=== PATIENT | male | born 1985 | race Hispanic/Latino ===

== ENCOUNTER 2016-12-09 06:44 | Observation (INO) | payer OTHER ==
[2016-12-09 06:54] VITALS: TEMP 97.6; O2SAT 100
[2016-12-09] MEDS ORDERED: Sodium Chloride 0.9% 1,000 ML IV STA (07:35)
--- NOTE | 2016-12-09 07:54 | ED PDOC ---
HPI: Abdomen Time Seen by Provider: 12/09/16 07:00 Chief Complaint (Nursing): Abdominal Pain Chief Complaint (Provider): Abdominal Pain History Per: Patient History/Exam Limitations: no limitations Onset/Duration Of Symptoms: Hrs (x1.5 hours [employer]) Current Symptoms Are (Timing): Still Present Location Of Pain/Discomfort: Diffuse Last Bowel Movement: Today Additional Complaint(s): Sriram Gordon is a 31 year old male that presents to the ED with a chief complaint of diffuse abdominal pain that he reports began about 1.5 hours prior to arrival. Patient states that he has had a few bowel movements this morning, which have temporarily relieved his pain, but that his pain has returned after each bowel movement. He denies any fever or vomiting, but reports slight nausea , which he attributes to his extreme pain. Of Note: Patient reports that he has had his appendix removed, but he still has his gallbladder. Past Medical History Reviewed: Historical Data, Nursing Documentation, Vital Signs Vital Signs: Last Vital Signs Temp 97.6 F 12/09/16 06:52 Pulse 75 12/09/16 13:00 Resp 14 12/09/16 13:00 BP 122/79 12/09/16 13:00 Pulse Ox 100 12/09/16 13:00 - Medical History PMH: No Chronic Diseases - Surgical History Surgical History: Appendectomy - Family History Family History: States: Unknown Family Hx - Social History Current smoker - smoking cessation education provided: No Alcohol: Occasional Drugs: Denies - Allergies Allergies/Adverse Reactions: Allergies Allergy/AdvReac Type Severity Reaction Status Date / Time No Known Allergies Allergy Verified 12/09/16 06:52 Review of Systems Constitutional: Negative for: Fever Gastrointestinal: Positive for: Nausea (mild), Abdominal Pain (diffuse). Negative for: Vomiting Physical Exam - Reviewed Nursing Documentation Reviewed: Yes Vital Signs Reviewed: Yes - Physical Exam Appears: Positive for: Non-toxic, Uncomfortable Head Exam: Positive for: ATRAUMATIC, NORMOCEPHALIC Skin: Positive for: Normal Color, Warm Eye Exam: Positive for: Normal appearance Cardiovascular/Chest: Positive for: Regular Rate, Rhythm. Negative for: Murmur Respiratory: Positive for: Normal Breath Sounds. Negative for: Wheezing Gastrointestinal/Abdominal: Positive for: Tenderness (diffuse abdominal tenderness). Negative for: Normal Exam Extremity: Positive for: Normal ROM Neurologic/Psych: Positive for: Alert, Oriented - Laboratory Results Result Diagrams: 12/09/16 07:45 12/09/16 07:45 - ECG O2 Sat by Pulse Oximetry: 100 (RA) Pulse Ox Interpretation: Normal Medical Decision Making Medical Decision Making: Impression: Abdominal Pain Plan: * CT A/P with PO and IV contrast * CMP * CBC * Lipase * Pepcid 20 mg IV * Morphine 4 mg IV * Sodium Chloride 1000 mL at 150 mLs/hr * Zofran Injection 4 mg IV * Urine Culture * Urinalysis * ED Obs * Reevaluation Scribe Attestation: Documented by Iza Pompa, acting as a scribe for Aurora Soni MD. Provider Scribe Attestation: All medical record entries made by the Scribe were at my direction and personally dictated by me. I have reviewed the chart and agree that the record accurately reflects my personal performance of the history, physical exam, medical decision making, and the department course for this patient. I have also personally directed, reviewed, and agree with the discharge instructions and disposition. ED OBSERVATION Date of observation admission: 12/09/16 Time of observation admission: 07:35 - Observation admission statement Patient is being placed in observation because:: need for serial examinations to determine stability for disposition. - Goals of Observation Goals of observation are:: determine origin of pain and improvement of symptoms. - Progress Note Progress Note: 12/09/16 07:35 Patient appears uncomfortable but is stable; is awaiting CT Scan. 12/09/16 9:05 Patient is stable. 12/09/16 10:40 Patient is stable, awaiting CT Scan results. 12/09/16 12:08 CT Scan A/P with PO and IV Contrast FINDINGS: LOWER THORAX: Unremarkable. LIVER: Unremarkable. No gross lesion or ductal dilatation. GALLBLADDER AND BILE DUCTS: Unremarkable. PANCREAS: Unremarkable. No gross lesion or ductal dilatation. SPLEEN: Unremarkable. ADRENALS: Unremarkable. No mass. KIDNEYS AND URETERS: Confirms Unremarkable. No hydronephrosis. No solid mass. VASCULATURE: Unremarkable. No aortic aneurysm. BOWEL: Slight thickening of small bowel which is diffuse likely reflective of mild enteritis Focal thickening of the wall of the duodenum which may represent duodenitis. APPENDIX: Prior appendectomy. Surgical clips in the right lower quadrant. PERITONEUM: Trace fluid in the pelvis. This appears to be uncomplicated fluid. Trace fluid also noted about the liver. LYMPH NODES: Unremarkable. No enlarged lymph nodes. BLADDER: Unremarkable. REPRODUCTIVE: Unremarkable. BONES: No acute fracture. OTHER FINDINGS: C IMPRESSION: Mild thickening of loops of small bowel compatible with enteritis. Findings suggest mild duodenitis. Low volume/trace perihepatic and pelvic ascites. CT Scan normal, labs normal. Patient is tolerating PO. Referred patient to GI doctor, is stable for discharge home. Clinical Impression: Enteritis Disposition - Clinical Impression Clinical Impression: Abdominal pain, Enteritis - Patient ED Disposition Is Patient to be Admitted: No Counseled Patient/Family Regarding: Studies Performed, Diagnosis, Need For Followup - Disposition Disposition: Routine/Home Disposition Time: 12:08 Condition: IMPROVED
[2016-12-09] MEDS ORDERED: Iohexol 240 (50 ml) ONE (07:55)
[2016-12-09 08:06] LABS: BASO % 0.3 % (0.0-2.0); EOS # 0.1 K/uL (0.0-0.7); EOS % 0.7 % (0.0-4.0); HEMOGLOBIN 15.8 g/dL (12.0-18.0); LYMPH # 2.4 K/uL (1.0-4.3); MEAN CORPUSCULAR HEMOGLOBIN 30.9 pg (27.0-31.0); MEAN CORPUSCULAR HGB CONC 33.9 g/dL (33.0-37.0); MEAN PLATELET VOLUME 7.9 fl (7.2-11.7); MONO # 0.8 K/uL (0.0-0.8); MONO % 7.9 % (0.0-10.0); NEUT # 6.6 K/uL (1.8-7.0); NEUT % 67.1 % (50.0-75.0); NRBC % 0.5 % (0.0-0.0); RBC 5.11 Mil/uL (4.40-5.90); RED CELL DISTRIBUTION WIDTH 12.6 % (11.5-14.5); WHITE BLOOD COUNT 9.8 K/uL (4.8-10.8)
[2016-12-09 08:07] LABS: ALB/GLOB RATIO 1.9 (1.0-2.1); ALBUMIN 4.7 g/dL (3.5-5.0); ALT/SGPT 32 U/L (21-72); AST/SGOT 27 U/L (17-59); BLOOD UREA NITROGEN 27 mg/dl (9-20); CALCIUM 9.5 mg/dL (8.4-10.2); GFR AFRICAN-AMERICAN > 60; GFR NON-AFRICAN AMERICAN > 60; LIPASE 166 U/L (23-300)
[2016-12-09] MEDS ORDERED: Iohexol 240 (50 ml) PO ONE (09:19)
[2016-12-09 10:54] LABS: URINE BILIRUBIN NEGATIVE (NEGATIVE); URINE BLOOD NEGATIVE (NEGATIVE); URINE CLARITY CLEAR (Clear); URINE COLOR YELLOW (YELLOW); URINE GLUCOSE (UA) NEG (Normal); URINE LEUKOCYTE ESTERASE NEG Leu/uL (Negative); URINE NITRATE NEGATIVE (NEGATIVE); URINE PROTEIN NEGATIVE (NEGATIVE); URINE UROBILINOGEN 0.2-1.0 mg/dL (0.2-1.0)
[2016-12-09] MEDS ORDERED: Iohexol 300 100 ML IJ ONE (10:54)
[2016-12-09] MEDS ORDERED: Sodium Chloride 0.9% 50 ML IV ONE (10:55)
--- NOTE | 2016-12-09 11:46 | CT ---
PROCEDURE: CT Abdomen and Pelvis with contrast HISTORY: abdominal pain COMPARISON: None. TECHNIQUE: Contrast dose: 90 cc Omnipaque 300 Radiation dose: Total exam DLP = 718.96 mGy-cm. This CT exam was performed using one or more of the following dose reduction techniques: Automated exposure control, adjustment of the mA and/or kV according to patient size, and/or use of iterative reconstruction technique. FINDINGS: LOWER THORAX: Unremarkable. LIVER: Unremarkable. No gross lesion or ductal dilatation. GALLBLADDER AND BILE DUCTS: Unremarkable. PANCREAS: Unremarkable. No gross lesion or ductal dilatation. SPLEEN: Unremarkable. ADRENALS: Unremarkable. No mass. KIDNEYS AND URETERS: Confirms Unremarkable. No hydronephrosis. No solid mass. VASCULATURE: Unremarkable. No aortic aneurysm. BOWEL: Slight thickening of small bowel which is diffuse likely reflective of mild enteritis Focal thickening of the wall of the duodenum which may represent duodenitis. APPENDIX: Prior appendectomy. Surgical clips in the right lower quadrant. PERITONEUM: Trace fluid in the pelvis. This appears to be uncomplicated fluid. Trace fluid also noted about the liver. LYMPH NODES: Unremarkable. No enlarged lymph nodes. BLADDER: Unremarkable. REPRODUCTIVE: Unremarkable. BONES: No acute fracture. OTHER FINDINGS: C IMPRESSION: Mild thickening of loops of small bowel compatible with enteritis. Findings suggest mild duodenitis. Low volume/trace perihepatic and pelvic ascites.
[2016-12-09 13:20] VITALS: BP 122/79; PULSE 75; RESP 14
== END 2016-12-09 12:07 | disposition home or self-care (01) ==
LOC: H.ER 06:44 → H.EROBSV 07:35
PROVIDERS: ADMIT Emergency Medicine; ATTEND Emergency Medicine
DX: K52.9 Noninfective gastroenteritis and colitis, unspecified (principal)